=== PATIENT | female | born 1985 | race Caucasian/White ===

== ENCOUNTER → 2022-06-20 | Outpatient (CLI) | payer OTHER ==
--- NOTE | 2022-06-20 11:08 | US ---
EXAMINATION TYPE: US thyroid st tissue head/neck DATE OF EXAM: 06/20/2022 COMPARISON: NONE CLINICAL HISTORY: R79.89 ABN THYROID BLOOD TESTS,R76.8 THYROID ANTIBODY POSITI. Abnormal labs GLAND SIZE: Right Lobe: 3.8 x 1.5 x 1.3 cm Overall Parenchyma: heterogenous Left Lobe: 4.3 x 1.3 x 1.4 cm Overall Parenchyma: Heterogenous Isthmus Thickness: 0.5 cm NODULES RIGHT: # of nodules measured on right: 0 LEFT: # of nodules measured on left: 0 ISTHMUS: # of nodules measured in the isthmus: 0 Bilateral neck scanned, no evidence of lymphadenopathy. Bilateral thyroid heterogeneous without disc rete nodule. IMPRESSION: Heterogenous thyroid gland without suspicious nodule. Correlate with serum markers for thyroiditis.
--- NOTE | 2022-06-20 14:38 | CT ---
EXAMINATION TYPE: CT abdomen pelvis w con DATE OF EXAM: 06/20/2022 COMPARISON: None INDICATION: elevated LFT DLP: 1001.7 mGycm, Automated exposure control for dose reduction was used. CONTRAST: 70 mL of Isovue 300. Study performed with Oral Contrast TECHNIQUE: Axial images were obtained from above the diaphragm to the pubic rami in the axial plane a t 5 mm thick sections. Reconstructed images are reviewed on the computer in the coronal plane. FINDINGS: Limited CT sections are obtained the lung bases. The lung bases are clear. CT ABDOMEN: Liver: There is moderate diffuse fatty infiltration of the liver. No discrete masses or cysts are joselin dent. Spleen: Normal Pancreas: Normal Adrenal glands: The adrenal glands are normal. Gallbladder: Normal Kidneys: No masses are evident. No hydronephrosis is present. No cysts are present. Delayed images were obtained through the kidneys, which remain unremarkable. Aorta: Normal Inferior vena cava: Normal. CT PELVIS: Loops of bowel within the abdomen and pelvis are normal. There are loops of bowel which are incom pletely distended or lack oral contrast limiting their evaluation. Appendix: Normal as visualized. Urinary bladder: Normal. Genitourinary structures: Uterus appears normal. Adnexa are unremarkable. Osseous structures: No suspicious lytic or sclerotic lesions. IMPRESSIONS: 1. Moderate fatty infiltration of the liver. Hepatomegaly is present with a craniocaudal dimension o f 18.4 cm.
== END | disposition home or self-care (01) ==
LOC: RADCTMAIN 06:59
PROVIDERS: ATTEND Family Medicine
DX: E07.89 Other specified disorders of thyroid (principal); R79.89 Other specified abnormal findings of blood chemistry; R76.8 Other specified abnormal immunological findings in serum
CPT/HCPCS: 76536; 74177; Q9967

== ENCOUNTER → 2022-07-15 | Outpatient (CLI) | payer OTHER ==
[2022-07-15 10:13] LABS: Basophils % (A) 1 %; Eosinophils # (A) 0.1 k/uL (0-0.7); Eosinophils % (A) 2 %; HCT 46.5 % (34.0-46.0); HGB 15.5 gm/dL (11.4-16.0); Lymphocytes % (A) 30 %; MCH 31.6 pg (25.0-35.0); MCHC 33.4 g/dL (31.0-37.0); MCV 94.6 fL (80.0-100.0); Mean Platelet Volume 8.8; Monocytes # (A) 0.2 k/uL (0-1.0); Monocytes % (A) 3 %; Neutrophils # (A) 4.1 k/uL (1.3-7.7); Neutrophils % (A) 63 %; Platelet Count 285 k/uL (150-450); RBC 4.91 m/uL (3.80-5.40); WBC 6.5 k/uL (3.8-10.6)
[2022-07-15 15:38] LABS: ALT 320 U/L (8-44); AST 217 U/L (13-35); African American GFR (CKD) 126.8 (60.0-200.0); Albumin 4.7 g/dL (3.8-4.9); Albumin/Globulin Ratio 1.43 (1.60-3.17); Alkaline Phosphatase 101 U/L (41-126); Bilirubin, Conjugated <0.20 mg/dL (0.20-0.40); Blood Urea Nitrogen 12.8 mg/dL (9.0-27.0); Calcium 10.2 mg/dL (8.7-10.3); Carbon Dioxide 22.5 mmol/L (20.0-27.5); Chloride 103 mmol/L (96-109); Globulin 3.3 g/dL (1.6-3.3); Glucose 121 mg/dL (70-110); Non-African American GFR(CKD) 109.4 (60.0-200.0); Potassium 4.7 mmol/L (3.5-5.5); Sodium 139 mmol/L (135-145); Total Protein 7.9 g/dL (6.2-8.2)
[2022-07-16 01:59] LABS: ACTH 3.03 pg/mL (0.00-45.99)
[2022-07-16 10:16] LABS: Protein, Total 8.2 g/dL (6.2-8.2)
[2022-07-16 15:27] LABS: Albumin 4.52 g/dL (3.80-4.90); Gamma Globulin 1.3 g/dL (0.70-1.50)
== END | disposition home or self-care (01) ==
LOC: LABWHC1 08:41
PROVIDERS: ATTEND Ophthalmology
DX: I10 Essential (primary) hypertension (principal); E27.9 Disorder of adrenal gland, unspecified; H02.402 Unspecified ptosis of left eyelid; E05.90 Thyrotoxicosis, unspecified without thyrotoxic crisis or storm; R74.8 Abnormal levels of other serum enzymes; R77.8 Other specified abnormalities of plasma proteins
CPT/HCPCS: 36415; 80053; 82024; 82103; 82248; 82533; 83519; 84165; 84439; 84443; 84481; 85025

== ENCOUNTER → 2022-08-08 | Outpatient (CLI) | payer OTHER | END | disposition home or self-care (01) | LOC: LABWHC1 09:54 | PROVIDERS: ATTEND Family Medicine | DX: Z53.9 Procedure and treatment not carried out, unspecified reason (principal) ==

== ENCOUNTER → 2022-08-13 | Outpatient (CLI) | payer OTHER ==
--- NOTE | 2022-08-26 08:59 | MM ---
Reason for Exam: Follow-up at short interval from prior study. Last mammogram was performed 1 year(s) and 3 month(s) ago. Patient History: Menarche at age 13. Patient has no children. Last menstrual period: 08/07/2022 Risk Values: Daksha 5 year model risk: 0.4%. NCI Lifetime model risk: 11.2%. Prior Study Comparison: 05/17/2021 Bilateral Diagnostic Mammogram, [facility]. 09/17/2021 Bilateral Diagnostic Ultrasound, [facility]. Tissue Density: The breast tissue is heterogeneously dense. This may lower the sensitivity of mammography. Findings: Analyzed By CAD. Similar 3 focal asymmetries demonstrated within the upper inner right breast at middle to posterior depth when compared to prior mammogram. Similar asymmetry demonstrated within the upper left breast at posterior depth only on the cc view. No new specific masses or architectural distortion. No suspicious calcifications within either breast. Overall Assessment: Incomplete: need additional imaging evaluation, BI-RAD 0 Management: Diagnostic Breast Ultrasound of both breasts. A clinical breast exam by your physician is recommended on an annual basis and results should be correlated with mammographic findings. This exam should not preclude additional follow-up of suspicious palpable abnormalities. Results were given to the patient verbally at the time of exam. Electronically signed and approved by: Jamel Pizano D.O.
--- NOTE | 2022-08-26 09:05 | USB ---
Reason for Exam: Additional evaluation requested from prior study. Patient History: Menarche at age 13. Patient has no children. Risk Values: Daksha 5 year model risk: 0.4%. NCI Lifetime model risk: 11.2%. Technique: Method: Whole Breast Handheld. Prior Study Comparison: 05/17/2021 Bilateral Diagnostic Mammogram, [facility]. 09/17/2021 Bilateral Diagnostic Ultrasound, [facility]. Findings: The whole breast of both breasts, the axilla of both breasts and the retroareolar of both breasts were scanned. A complete US of all four quadrants of both breasts and retro-areolar region and axilla were reviewed. Multiple probably benign oval parallel avascular hypoechoic masses redemonstrated within both breasts likely represent fibroadenomas. Examples include a 1.9 x 0.7 x 1.2 cm mass within the right breast 1:00 6 cm from the nipple with internal vascular flow. There is posterior acoustic shadowing identified. Another one not previously visualized on prior examination at 7:00 10 cm from the nipple measures 0.6 x 0.5 x 0.9 cm without internal color flow. Stable 1.4 x 0.4 x 1.0 cm mass within the right breast at 10:00 12 cm from the nipple. Stable mass within the left breast at 2:00 6 cm from the nipple measuring 0.8 x 1.2 x 0.5 cm. There is another mass not definitively visualized within the left breast at 5:00 3 cm the nipple measuring 0.6 x 0.3 x 0.8 cm. Overall Assessment: Probably benign, BI-RAD 3 Management: Diagnostic Breast Ultrasound of both breasts in 6 months. A clinical breast exam by your physician is recommended on an annual basis and results should be correlated with mammographic findings. This exam should not preclude additional follow-up of suspicious palpable abnormalities. Results were given to the patient verbally at the time of exam. Electronically signed and approved by: Ezequiel Small M.D. Radiologist
== END | disposition home or self-care (01) ==
LOC: RADMAMWWP 07:54
PROVIDERS: ATTEND Family Medicine
DX: R92.8 Other abnormal and inconclusive findings on diagnostic imaging of breast (principal); N63.21 Unspecified lump in the left breast, upper outer quadrant
CPT/HCPCS: 77062; 77066

== ENCOUNTER → 2022-08-15 | Outpatient (CLI) | payer OTHER ==
[2022-08-15 17:50] LABS: ALT 253 U/L (8-44); AST 172 U/L (13-35); Albumin 4.4 g/dL (3.8-4.9); Albumin/Globulin Ratio 1.42 (1.60-3.17); Alkaline Phosphatase 89 U/L (41-126); Bilirubin, Conjugated <0.20 mg/dL (0.20-0.40); Globulin 3.1 g/dL (1.6-3.3); Total Protein 7.5 g/dL (6.2-8.2)
== END | disposition home or self-care (01) ==
LOC: LABWHC1 08:51
PROVIDERS: ATTEND Nurse Practitioner Family
DX: R74.8 Abnormal levels of other serum enzymes (principal)
CPT/HCPCS: 36415; 80074; 80076

== ENCOUNTER → 2022-08-22 | Outpatient (CLI) | payer OTHER ==
[2022-08-22 16:00] LABS: HCT 42.2 % (37.2-46.3); HGB 14.2 g/dL (12.0-15.0); MCH 30.5 pg (27.0-32.0); MCHC 33.6 g/dL (32.0-37.0); MCV 90.6 fL (80.0-97.0); Mean Platelet Volume 10.9 fL (9.5-12.2); NRBC Per 100 WBC 0 /100 WBCS (0.0-0.0); Platelet Count 312 X 10*3/uL (140-440); RBC 4.66 X 10*6/uL (4.10-5.20); RDW 12.3 % (11.5-14.5); WBC 6.46 X 10*3/uL (4.50-10.00)
[2022-08-22 16:36] LABS: ALT 285 U/L (8-44); AST 258 U/L (13-35); African American GFR (CKD) 135.3 (60.0-200.0); Albumin 4.3 g/dL (3.8-4.9); Albumin/Globulin Ratio 1.42 (1.60-3.17); Alkaline Phosphatase 84 U/L (41-126); BUN/Creat Ratio 23.03 Ratio (12.00-20.00); Bilirubin, Conjugated <0.20 mg/dL (0.20-0.40); Blood Urea Nitrogen 13.7 mg/dL (9.0-27.0); Calcium 9.6 mg/dL (8.7-10.3); Chloride 101 mmol/L (96-109); Glucose 101 mg/dL (70-110); Non-African American GFR(CKD) 116.8 (60.0-200.0); Potassium 4.1 mmol/L (3.5-5.5); Sodium 137 mmol/L (135-145); Total Protein 7.3 g/dL (6.2-8.2)
== END | disposition home or self-care (01) ==
LOC: LABWHC1 09:25
PROVIDERS: ATTEND Internal Medicine
DX: E05.90 Thyrotoxicosis, unspecified without thyrotoxic crisis or storm (principal); R74.8 Abnormal levels of other serum enzymes
CPT/HCPCS: 36415; 80053; 82248; 84439; 84443; 84481; 85027

== ENCOUNTER → 2022-09-13 | Outpatient (CLI) | payer OTHER ==
[2022-09-13 15:41] LABS: ALT 180 U/L (8-44); AST 141 U/L (13-35); Albumin 4.4 d/dL (3.8-4.9); Albumin/Globulin Ratio 1.33 Ratio (1.60-3.17); Alkaline Phosphatase 94 U/L (41-126); Blood Urea Nitrogen 11.2 mg/dL (9.0-27.0); Calcium 9.9 mg/dL (8.7-10.3); Carbon Dioxide 23.6 mmol/L (21.6-31.8); Chloride 102 mmol/L (96-109); Globulin 3.3 d/dL (1.6-3.3); Glucose 106 mg/dL (70-110); Potassium 4.5 mmol/L (3.5-5.5); Sodium 139 mmol/L (135-145); Total Bilirubin 0.3 mg/dL (0.3-1.2); Total Protein 7.7 d/dL (6.2-8.2)
== END | disposition home or self-care (01) ==
LOC: LABWHC1 08:49
PROVIDERS: ATTEND Nurse Practitioner Family
DX: R74.8 Abnormal levels of other serum enzymes (principal)
CPT/HCPCS: 36415; 80053

== ENCOUNTER → 2022-09-25 | Outpatient (CLI) | payer OTHER ==
[2022-09-25 16:06] LABS: ALT 148 U/L (8-44); AST 130 U/L (13-35); Albumin 4.1 d/dL (3.8-4.9); Albumin/Globulin Ratio 1.37 Ratio (1.60-3.17); Alkaline Phosphatase 88 U/L (41-126); Bilirubin, Conjugated <0.20 mg/dL (0.20-0.40); Bilirubin,Unconjugated >0 mg/dL (0.20-1.00); Total Bilirubin 0.2 mg/dL (0.3-1.2); Total Protein 7.1 d/dL (6.2-8.2)
== END | disposition home or self-care (01) ==
LOC: LABWHC1 09:14
PROVIDERS: ATTEND Nurse Practitioner Family
DX: R74.8 Abnormal levels of other serum enzymes (principal)
CPT/HCPCS: 36415; 80076

== ENCOUNTER → 2022-09-27 | Outpatient (CLI) | payer OTHER ==
[2022-09-27 16:38] LABS: ALT 204 U/L (8-44); AST 224 U/L (13-35); Albumin 4.5 d/dL (3.8-4.9); Albumin/Globulin Ratio 1.32 Ratio (1.60-3.17); Alkaline Phosphatase 88 U/L (41-126); BUN/Creat Ratio 16.86 Ratio (12.00-20.00); Blood Urea Nitrogen 11.8 mg/dL (9.0-27.0); Calcium 10.1 mg/dL (8.7-10.3); Carbon Dioxide 23.4 mmol/L (21.6-31.8); Chloride 103 mmol/L (96-109); Globulin 3.4 d/dL (1.6-3.3); Glucose 100 mg/dL (70-110); Potassium 3.6 mmol/L (3.5-5.5); Sodium 140 mmol/L (135-145); Total Bilirubin 0.6 mg/dL (0.3-1.2); Total Protein 7.9 d/dL (6.2-8.2)
== END | disposition home or self-care (01) ==
LOC: LABWHC1 10:05
PROVIDERS: ATTEND Nurse Practitioner Family
DX: R74.8 Abnormal levels of other serum enzymes (principal)
CPT/HCPCS: 36415; 80053; 86376

== ENCOUNTER → 2022-10-09 | Outpatient (CLI) | payer OTHER ==
[2022-10-09 14:32] LABS: HCT 45.8 % (37.2-46.3); MCHC 32.8 d/dL (32.0-37.0); MCV 91.6 FL (80.0-97.0); Mean Platelet Volume 11.5 FL (9.5-12.2); NRBC Per 100 WBC 0 X 10*3/uL (0.00-0.01); Platelet Count 269 X 10*3/uL (140-440); RDW 12.3 % (11.5-14.5); WBC 6.85 X 10*3/uL (4.50-10.00)
[2022-10-09 14:57] LABS: ALT 168 U/L (8-44); AST 113 U/L (13-35); Albumin 4.4 d/dL (3.8-4.9); Albumin/Globulin Ratio 1.38 Ratio (1.60-3.17); Alkaline Phosphatase 96 U/L (41-126); BUN/Creat Ratio 18.86 Ratio (12.00-20.00); Blood Urea Nitrogen 13.2 mg/dL (9.0-27.0); Calcium 9.7 mg/dL (8.7-10.3); Carbon Dioxide 20.4 mmol/L (21.6-31.8); Chloride 103 mmol/L (96-109); Globulin 3.2 d/dL (1.6-3.3); Glucose 107 mg/dL (70-110); Potassium 4.4 mmol/L (3.5-5.5); Sodium 137 mmol/L (135-145); T4, Free (Free Thyroxine) 1.06 ng/dL (0.80-1.80); Total Bilirubin 0.4 mg/dL (0.3-1.2); Total Protein 7.6 d/dL (6.2-8.2)
== END | disposition home or self-care (01) ==
LOC: LABWHC1 09:04
PROVIDERS: ATTEND Internal Medicine
DX: E05.90 Thyrotoxicosis, unspecified without thyrotoxic crisis or storm (principal)
CPT/HCPCS: 36415; 80053; 84439; 84443; 84481; 85027

== ENCOUNTER 2022-11-13 07:39 | Day surgery (SDC) | payer OTHER ==
[2022-11-13] MEDS ORDERED: ALPRAZolam 0.5 MG TAB PO PRN (08:27)
[2022-11-13 08:42] LABS: Mean Platelet Volume 8.1; Platelet Count 267 k/uL (150-450)
[2022-11-13 09:01] LABS: INR 0.9 (<1.2); Prothrombin Time 9.5 sec (9.0-12.0)
[2022-11-13] MEDS ORDERED: HYDROmorphone 0.5 MG/0.5 ML SYRINGE IVP PRN (09:28)
--- NOTE | 2022-11-13 11:37 | CT ---
EXAMINATION TYPE: CT biopsy liver DATE OF EXAM: 11/13/2022 COMPARISON: NONE HISTORY: Abnormal liver function studies CT DLP: 998mGycm The procedure was explained to the patient. The risks, complications, benefits, and alternatives wer e discussed and any questions were answered. Informed consent was obtained. Patient was placed supi ne on the CT table and prepped and draped in the usual sterile fashion. All elements of maximal barrier and sterile technique utilized. Utilizing CT guidance, an 18 gauge core biopsy needle access into the posterior segment right lobe o f the liver was achieved and a single 18 gauge core sample was obtained. The patient was stable thro ughout the procedure and remained stable upon discharge. IMPRESSION: 1. Successful 18 gauge core biopsy of the liver.
[2022-11-13 13:03] VITALS: BP 146/85; PULSE 73; RESP 18; TEMP 98.3
== END 2022-11-13 14:44 | disposition home or self-care (01) ==
LOC: RADPROMAIN 07:39 → 1SOBS 09:36 → RADPROMAIN 14:44
PROVIDERS: ATTEND Internal Medicine Gastroenterology
DX: K75.81 Nonalcoholic steatohepatitis (NASH) (principal)
CPT/HCPCS: 85049; 85610; 88313; 88307; 47000; 77012; J1170

== ENCOUNTER → 2022-11-28 | Outpatient (CLI) | payer OTHER ==
[2022-11-28 16:23] LABS: Basophils # (A) 0.06 X 10*3/uL (0.00-0.10); Basophils % (A) 0.9 %; Eosinophils # (A) 0.27 X 10*3/uL (0.04-0.35); Eosinophils % (A) 3.9 %; HCT 44.2 % (37.2-46.3); HGB 15.1 d/dL (12.0-15.0); Lymphocytes # (A) 2.49 X 10*3/uL (0.90-5.00); Lymphocytes % (A) 35.8 %; MCH 30.7 pg (27.0-32.0); MCHC 34.2 d/dL (32.0-37.0); MCV 89.8 FL (80.0-97.0); Mean Platelet Volume 10.6 FL (9.5-12.2); Monocytes # (A) 0.43 X 10*3/uL (0.20-1.00); Monocytes % (A) 6.2 %; NRBC Per 100 WBC 0 X 10*3/uL (0.00-0.01); Neutrophils # (A) 3.69 X 10*3/uL (1.80-7.70); Neutrophils % (A) 52.9 %; Platelet Count 318 X 10*3/uL (140-440); RBC 4.92 X 10*6/uL (4.10-5.20); RDW 12.4 % (11.5-14.5); WBC 6.96 X 10*3/uL (4.50-10.00)
[2022-11-28 16:26] LABS: ALT 289 U/L (8-44); AST 256 U/L (13-35); Albumin 4.6 d/dL (3.8-4.9); Albumin/Globulin Ratio 1.59 Ratio (1.60-3.17); Alkaline Phosphatase 86 U/L (41-126); Blood Urea Nitrogen 10.8 mg/dL (9.0-27.0); Calcium 9.6 mg/dL (8.7-10.3); Carbon Dioxide 22.8 mmol/L (21.6-31.8); Chloride 101 mmol/L (96-109); Globulin 2.9 d/dL (1.6-3.3); Glucose 104 mg/dL (70-110); Potassium 4.5 mmol/L (3.5-5.5); Sodium 137 mmol/L (135-145); Total Bilirubin 0.4 mg/dL (0.3-1.2); Total Protein 7.5 d/dL (6.2-8.2)
== END | disposition home or self-care (01) ==
LOC: LABWHC1 08:28
PROVIDERS: ATTEND Internal Medicine Gastroenterology
DX: R74.8 Abnormal levels of other serum enzymes (principal)
CPT/HCPCS: 36415; 80053; 85025

== ENCOUNTER → 2022-12-27 | Outpatient (CLI) | payer OTHER ==
[2022-12-27 15:54] LABS: Basophils # (A) 0.05 X 10*3/uL (0.00-0.10); Basophils % (A) 0.8 %; Eosinophils # (A) 0.29 X 10*3/uL (0.04-0.35); Eosinophils % (A) 4.6 %; HCT 43.9 % (37.2-46.3); HGB 14.6 d/dL (12.0-15.0); Lymphocytes # (A) 2.47 X 10*3/uL (0.90-5.00); Lymphocytes % (A) 39.3 %; MCH 30.7 pg (27.0-32.0); MCHC 33.3 d/dL (32.0-37.0); MCV 92.2 FL (80.0-97.0); Mean Platelet Volume 10.7 FL (9.5-12.2); Monocytes # (A) 0.42 X 10*3/uL (0.20-1.00); Monocytes % (A) 6.7 %; NRBC Per 100 WBC 0 X 10*3/uL (0.00-0.01); Neutrophils # (A) 3.04 X 10*3/uL (1.80-7.70); Neutrophils % (A) 48.3 %; Platelet Count 294 X 10*3/uL (140-440); RBC 4.76 X 10*6/uL (4.10-5.20); RDW 12.5 % (11.5-14.5); WBC 6.29 X 10*3/uL (4.50-10.00)
[2022-12-27 17:01] LABS: ALT 278 U/L (8-44); AST 213 U/L (13-35); Albumin 4.4 d/dL (3.8-4.9); Albumin/Globulin Ratio 1.42 Ratio (1.60-3.17); Alkaline Phosphatase 89 U/L (41-126); BUN/Creat Ratio 16.14 Ratio (12.00-20.00); Blood Urea Nitrogen 11.3 mg/dL (9.0-27.0); Calcium 9.4 mg/dL (8.7-10.3); Carbon Dioxide 23.2 mmol/L (21.6-31.8); Chloride 101 mmol/L (96-109); Globulin 3.1 d/dL (1.6-3.3); Glucose 112 mg/dL (70-110); Potassium 4.2 mmol/L (3.5-5.5); Sodium 139 mmol/L (135-145); T4, Free (Free Thyroxine) 0.92 ng/dL (0.80-1.80); Total Bilirubin 0.4 mg/dL (0.3-1.2); Total Protein 7.5 d/dL (6.2-8.2)
== END | disposition home or self-care (01) ==
LOC: LABWHC1 08:46
PROVIDERS: ATTEND Internal Medicine
DX: E05.90 Thyrotoxicosis, unspecified without thyrotoxic crisis or storm (principal); R74.8 Abnormal levels of other serum enzymes
CPT/HCPCS: 36415; 80053; 84439; 84443; 84481; 85025

== ENCOUNTER → 2023-01-02 | Outpatient (CLI) | payer OTHER ==
--- NOTE | 2023-01-02 15:36 | P.GSHP ---
History of Present Illness H&P Date: 01/02/23 Chief Complaint: bilateral breast masses on ultrasound Vandana is a 37 year old white female seen in consultation for Dr. Barriga regarding bilateral breast masses on ultrasound. She had a bilateral mammogram and ultrasound on 08-13-22 showing these lesions. The patients paternal grandmother (in her 50's) had breast cancer and has had mammograms done early. The patient was being followed very closely in [place] and we do not have those mammographic films. The patient does not feel any new lumps masses or nodules of concern in either breast. She is not complaining of any nipple discharge or skin changes. She has not had any recent trauma or infection of the breast. Caffeine: 1 pop/week, tea daily nicotine: none chocolate: twice weekly BCP: on them since Family History: paternal grandmother: breast cancer in her 50's, ? bone and blood cancer in her 90's father: prostate cancer paternal grandfather: prostate cancer mother: cervical cancer Hormonal history: Menarche:13 G0 periods regular, on BCP: family history of ovarian cyst LMP: last week Surgical history: Left wrist ganglion cyst twice Medical History: thyroid disorder GRAVES disease fatty liver/ nonalcoholic HTN Social History: Nicotine: Negative Alcohol: One drink a month Drugs:none - Constitutional Constitutional: Denies chills, Denies fever - EENT Eyes: denies blurred vision, denies pain Ears: deny: decreased hearing, tinnitus Ears, nose, mouth and throat: Denies headache, Denies sore throat - Breasts Breasts: bilateral: as per HPI - Cardiovascular Cardiovascular: Denies chest pain, Denies shortness of breath - Respiratory Respiratory: Denies cough, Denies 7 - Gastrointestinal Gastrointestinal: Denies abdominal pain, Denies diarrhea, Denies nausea, Denies vomiting - Genitourinary (Female) Genitourinary: Denies dysuria, Denies hematuria - Menstruation Menstruation: Reports as per HPI - Musculoskeletal Musculoskeletal: Denies myalgias - Integumentary Integumentary: Denies pruritus, Denies rash - Neurological Neurological: Denies numbness, Denies weakness - Psychiatric Psychiatric: Denies anxiety, Denies depression - Endocrine Comment: thyoid disease Endocrine: Reports weight change, Denies fatigue - Hematologic/Lymphatic Comment: none - Allergic/Immunologic Allergic/Immunologic: Reports as per HPI Past Medical History Past Medical History: Hypertension, Liver Disease, Thyroid Disorder History of Any Multi-Drug Resistant Organisms: None Reported Additional Past Surgical History / Comment(s): ganglion cyst left wrist removed Past Anesthesia/Blood Transfusion Reactions: No Reported Reaction Past Psychological History: Anxiety Smoking Status: Never smoker Past Alcohol Use History: None Reported Additional Drug Use History / Comment(s): CBD edible - Past Family History Father Family Medical History: Liver Disease Additional Family Medical History / Comment(s): fatty liver disease Medications and Allergies Home Medications Medication Instructions Recorded Confirmed Type Fexofenadine HCl [Yolie Allergy] 180 mg PO DAILY 11/06/22 01/02/23 History Fish Oil/Dha/Epa [Fish Oil 1,200 1 each PO DAILY 11/06/22 01/02/23 History mg Fish Oil] L.acidoph,Paracasei, B.lactis 1 each PO DAILY 11/06/22 01/02/23 History [Probiotic] Milk Thistle 400 mg PO DAILY 11/06/22 01/02/23 History Multivit with Calcium,Iron,Min 1 each PO DAILY 11/06/22 01/02/23 History [Women's Multivitamin] amLODIPine 10 mg PO DAILY 11/06/22 01/02/23 History methazolAMIDE [Methazolamide] 50 mg PO DAILY 11/06/22 01/02/23 History Kariva 1 tab PO DAILY 01/02/23 01/02/23 History Multivitamin [Multivitamins Adult 1 each PO DAILY 01/02/23 01/02/23 History Gummies] Allergies Allergy/AdvReac Type Severity Reaction Status Date / Time Penicillins Allergy Rash/Hives Verified 01/02/23 15:14 Surgical - Exam - General no distress - Eyes normal ocular movement - ENT no hearing loss - Neck trachea midline - Respiratory normal respiratory effort, clear to auscultation - Cardiovascular Rhythm: regular Heart Sounds: normal: S1, S2 - Abdomen Abdomen: soft, non tender, no guarding, no rigid, no rebound - Integumentary normal turgor - Neurologic no disoriented, no combative - Musculoskeletal normal gait - Psychiatric oriented to time, oriented to person, oriented to place, speech is normal, memory intact Breast Exam: BRA: 34H Inspection: Bilateral grade 3 ptosis Palpation: Right breast: Multi-positional exam fibrocystic changes, no discrete dominant masses or nodules of concern Right axilla: No adenopathy of concern Left breast: Multiple positional exam fibrocystic changes no dominant masses or nodules of concern Left axilla: No adenopathy of concern Results reviewed ultrasound and mammogram results Assessment and Plan Assessment: Impression: Bilateral nodules in the breast, Positive family history of breast cancer Fibrocystic breast changes Macromastia Plan: Patient is due for bilateral breast ultrasound Follow up after bilateral breast ultrasound Appointment with plastic surgery to consider breast reduction CC: Dr. Barriga
== END ==
LOC: WWCWWP 13:56
PROVIDERS: ATTEND Surgery
DX: Z12.31 Encounter for screening mammogram for malignant neoplasm of breast (principal); N60.19 Diffuse cystic mastopathy of unspecified breast; E07.9 Disorder of thyroid, unspecified; I10 Essential (primary) hypertension; K76.0 Fatty (change of) liver, not elsewhere classified; N60.09 Solitary cyst of unspecified breast; N62 Hypertrophy of breast; Z80.3 Family history of malignant neoplasm of breast; Z88.0 Allergy status to penicillin

== ENCOUNTER → 2023-01-10 | Outpatient (CLI) | payer OTHER ==
--- NOTE | 2023-01-10 13:39 | USB ---
Reason for Exam: Follow-up at short interval from prior study. Patient History: Menarche at age 13. Patient has no children. Risk Values: Daksha 5 year model risk: 0.4%. NCI Lifetime model risk: 11.2%. Technique: Method: Targeted. Prior Study Comparison: 05/17/2021 Bilateral Diagnostic Mammogram, [facility]. 08/13/2022 Bilateral MG 3D diag mammo w/cad [facility], [facility]. Findings: The lateral section of the breast of both breasts, the axilla of both breasts and the retroareolar of both breasts were scanned. Cystic structure at the right 10:00 position is redemonstrated and measures 1.2 x 0.6 cm versus 1 cm previously. At the right 2:00 position there is a 1.1 cm hypoechoic lesion unchanged from prior study 1.2 cm. At the left 2:00 position. Stable hypoechoic lesion 6 cm from the nipple measures 1.1 cm. Likely reflecting fibroadenoma. Overall Assessment: Probably benign, BI-RAD 3 Management: Diagnostic Breast Ultrasound of both breasts in 6 months. A clinical breast exam by your physician is recommended on an annual basis and results should be correlated with mammographic findings. This exam should not preclude additional follow-up of suspicious palpable abnormalities. Results were given to the patient verbally at the time of exam. Electronically signed and approved by: Mode Lyons M.D. Radiologis
== END | disposition home or self-care (01) ==
LOC: RADUSWWP 10:08
PROVIDERS: ATTEND Surgery
DX: N60.01 Solitary cyst of right breast (principal); R92.8 Other abnormal and inconclusive findings on diagnostic imaging of breast

== ENCOUNTER → 2023-01-30 | Outpatient (CLI) | payer OTHER ==
[2023-01-30 10:15] VITALS: BP 154/99; PULSE 86; RESP 18; TEMP 98.5
--- NOTE | 2023-01-30 10:19 | P.PN ---
Subjective Progress Note Date: 01/30/23 bilateral breast masses on ultrasound Vandana is a 37 year old white female seen in consultation for Dr. Barriga regarding bilateral breast masses on ultrasound. She had a bilateral mammogram and ultrasound on 08-13-22 showing these lesions. The patients paternal grandmother (in her 50's) had breast cancer and has had mammograms done early. The patient was being followed very closely in [place] and we do not have those mammographic films. The patient does not feel any new lumps masses or nodules of concern in either breast. She is not complaining of any nipple discharge or skin changes. She has not had any recent trauma or infection of the breast. A bilateral breast ultrasound was done on 01-10-23. This showed: right breast cyst at 10:00 right breast 2:00 1.1 cm unchanged lesion left breast 2:00 stabel hypoechoic lesion BIRAD 3 repeat ultrasound in 6 months Caffeine: 1 pop/week, tea daily nicotine: none chocolate: twice weekly BCP: on them since 16 Family History: paternal grandmother: breast cancer in her 50's, ? bone and blood cancer in her 90's father: prostate cancer paternal grandfather: prostate cancer mother: cervical cancer Hormonal history: Menarche:13 G0 periods regular, on BCP: family history of ovarian cyst LMP: last week Surgical history: Left wrist ganglion cyst twice Medical History: thyroid disorder GRAVES disease fatty liver/ nonalcoholic HTN Social History: Nicotine: Negative Alcohol: One drink a month Drugs:none - Constitutional Constitutional: Denies chills, Denies fever - EENT Eyes: denies blurred vision, denies pain Ears: deny: decreased hearing, tinnitus Ears, nose, mouth and throat: Denies headache, Denies sore throat - Breasts Breasts: bilateral: as per HPI - Cardiovascular Cardiovascular: Denies chest pain, Denies shortness of breath - Respiratory Respiratory: Denies cough - Gastrointestinal Gastrointestinal: Denies abdominal pain, Denies diarrhea, Denies nausea, Denies vomiting - Genitourinary (Female) Genitourinary: Denies dysuria, Denies hematuria - Menstruation Menstruation: Reports as per HPI - Musculoskeletal Musculoskeletal: Denies myalgias - Integumentary Integumentary: Denies pruritus, Denies rash - Neurological Neurological: Denies numbness, Denies weakness - Psychiatric Psychiatric: Denies anxiety, Denies depression - Endocrine Comment: thyoid disease Endocrine: Reports weight change, Denies fatigue - Hematologic/Lymphatic Comment: none - Allergic/Immunologic Allergic/Immunologic: Reports as per HPI Past Medical History Past Medical History: Hypertension, Liver Disease, Thyroid Disorder History of Any Multi-Drug Resistant Organisms: None Reported Additional Past Surgical History / Comment(s): ganglion cyst left wrist removed Past Anesthesia/Blood Transfusion Reactions: No Reported Reaction Past Psychological History: Anxiety Smoking Status: Never smoker Past Alcohol Use History: None Reported Additional Drug Use History / Comment(s): CBD edible - Past Family History Father Family Medical History: Liver Disease Additional Family Medical History / Comment(s): fatty liver disease Medications and Allergies Home Medications Medication Instructions Recorded Confirmed Type Fexofenadine HCl [Yolie Allergy] 180 mg PO DAILY 11/06/22 01/02/23 History Fish Oil/Dha/Epa [Fish Oil 1,200 1 each PO DAILY 11/06/22 01/02/23 History mg Fish Oil] L.acidoph,Paracasei, B.lactis 1 each PO DAILY 11/06/22 01/02/23 History [Probiotic] Milk Thistle 400 mg PO DAILY 11/06/22 01/02/23 History Multivit with Calcium,Iron,Min 1 each PO DAILY 11/06/22 01/02/23 History [Women's Multivitamin] amLODIPine 10 mg PO DAILY 11/06/22 01/02/23 History methazolAMIDE [Methazolamide] 50 mg PO DAILY 11/06/22 01/02/23 History Kariva 1 tab PO DAILY 01/02/23 01/02/23 History Multivitamin [Multivitamins Adult 1 each PO DAILY 01/02/23 01/02/23 History Gummies] Allergies Allergy/AdvReac Type Severity Reaction Status Date / Time Penicillins Allergy Rash/Hives Verified 01/02/23 15:14 Objective - Vital Signs Vital signs: Vital Signs Temp 98.5 F 01/30/23 10:06 Pulse 86 01/30/23 10:06 Resp 18 01/30/23 10:06 BP 154/99 01/30/23 10:06 Pulse Ox 99 01/30/23 10:06 FiO2 Assessment and Plan Assessment: Impression: Bilateral nodules in the breast, Positive family history of breast cancer Fibrocystic breast changes Macromastia The patient had a bilateral mammogram performed on [id number] BIRAD 3 Plan: Patient is due for bilateral breast ultrasound in 6 months Follow up after bilateral breast ultrasound Appointment with plastic surgery to consider breast reduction If the patient is going to have a breast reduction prior to the repeat ultrasound I would recommend an ultrasound core biopsy of the hypoechoic lesion in the right breast, at this time the patient would prefer to avoid a biopsy if possible. CC: Dr. Barriga
== END ==
LOC: WWCWWP 09:35
PROVIDERS: ATTEND Surgery
DX: N62 Hypertrophy of breast (principal); N60.02 Solitary cyst of left breast; N60.01 Solitary cyst of right breast; N60.11 Diffuse cystic mastopathy of right breast; N63.10 Unspecified lump in the right breast, unspecified quadrant; N63.20 Unspecified lump in the left breast, unspecified quadrant; N60.12 Diffuse cystic mastopathy of left breast; E07.9 Disorder of thyroid, unspecified; I10 Essential (primary) hypertension; K76.0 Fatty (change of) liver, not elsewhere classified; Z80.3 Family history of malignant neoplasm of breast; Z88.0 Allergy status to penicillin

== ENCOUNTER → 2023-02-06 | Outpatient (CLI) | payer OTHER ==
[2023-02-06 16:13] LABS: Basophils # (A) 0.03 X 10*3/uL (0.00-0.10); Basophils % (A) 0.5 %; Eosinophils # (A) 0.05 X 10*3/uL (0.04-0.35); Eosinophils % (A) 0.8 %; HCT 44.3 % (37.2-46.3); HGB 14.8 g/dL (12.0-15.0); Lymphocytes # (A) 2.23 X 10*3/uL (0.90-5.00); Lymphocytes % (A) 36.2 %; MCH 30.4 pg (27.0-32.0); MCHC 33.4 g/dL (32.0-37.0); Mean Platelet Volume 10.6 FL (9.5-12.2); Monocytes % (A) 8.1 %; NRBC Per 100 WBC 0 X 10*3/uL (0.00-0.01); Neutrophils # (A) 3.33 X 10*3/uL (1.80-7.70); Neutrophils % (A) 54.1 %; Platelet Count 329 X 10*3/uL (140-440); RBC 4.87 X 10*6/uL (4.10-5.20); RDW 12.4 % (11.5-14.5); WBC 6.16 X 10*3/uL (4.50-10.00)
[2023-02-06 16:17] LABS: BUN/Creat Ratio 18.43 Ratio (12.00-20.00); Blood Urea Nitrogen 12.9 mg/dL (9.0-27.0); Glucose 99 mg/dL (70-110)
[2023-02-06 16:18] LABS: ALT 267 U/L (8-44); AST 241 U/L (13-35); Albumin 4.6 g/dL (3.8-4.9); Albumin/Globulin Ratio 1.53 Ratio (1.60-3.17); Alkaline Phosphatase 84 U/L (41-126); Calcium 10.1 mg/dL (8.7-10.3); Carbon Dioxide 23.9 mmol/L (21.6-31.8); Chloride 101 mmol/L (96-109); Potassium 4.4 mmol/L (3.5-5.5); Sodium 137 mmol/L (135-145); Total Bilirubin 0.6 mg/dL (0.3-1.2); Total Protein 7.6 g/dL (6.2-8.2)
== END | disposition home or self-care (01) ==
LOC: LABWHC1 09:19
PROVIDERS: ATTEND Internal Medicine Gastroenterology
DX: R74.8 Abnormal levels of other serum enzymes (principal)
CPT/HCPCS: 36415; 80053; 85025

== ENCOUNTER → 2023-04-02 | Outpatient (CLI) | payer OTHER ==
[2023-04-02 15:34] LABS: ALT 160 U/L (8-44); AST 131 U/L (13-35); Albumin 4.3 g/dL (3.8-4.9); Albumin/Globulin Ratio 1.43 Ratio (1.60-3.17); Alkaline Phosphatase 85 U/L (41-126); Blood Urea Nitrogen 13.6 mg/dL (9.0-27.0); Calcium 9.7 mg/dL (8.7-10.3); Chloride 102 mmol/L (96-109); Glucose 103 mg/dL (70-110); Potassium 4.3 mmol/L (3.5-5.5); Sodium 137 mmol/L (135-145); T4, Free (Free Thyroxine) 0.92 ng/dL (0.80-1.80); Total Bilirubin 0.5 mg/dL (0.3-1.2); Total Protein 7.3 g/dL (6.2-8.2)
[2023-04-02 15:54] LABS: Basophils # (A) 0.06 X 10*3/uL (0.00-0.10); Basophils % (A) 0.8 %; Eosinophils # (A) 0.03 X 10*3/uL (0.04-0.35); Eosinophils % (A) 0.4 %; HCT 43.6 % (37.2-46.3); HGB 15.2 g/dL (12.0-15.0); Lymphocytes # (A) 3.56 X 10*3/uL (0.90-5.00); MCH 31.7 pg (27.0-32.0); MCHC 34.9 g/dL (32.0-37.0); Mean Platelet Volume 10.9 FL (9.5-12.2); Monocytes # (A) 0.53 X 10*3/uL (0.20-1.00); NRBC Per 100 WBC 0 X 10*3/uL (0.00-0.01); Neutrophils # (A) 3.38 X 10*3/uL (1.80-7.70); Neutrophils % (A) 44.5 %; Platelet Count 309 X 10*3/uL (140-440); RBC 4.79 X 10*6/uL (4.10-5.20); RDW 12.7 % (11.5-14.5); WBC 7.58 X 10*3/uL (4.50-10.00)
== END | disposition home or self-care (01) ==
LOC: LABWHC1 09:07
PROVIDERS: ATTEND Internal Medicine Gastroenterology
DX: E05.90 Thyrotoxicosis, unspecified without thyrotoxic crisis or storm (principal); R74.8 Abnormal levels of other serum enzymes; R73.9 Hyperglycemia, unspecified
CPT/HCPCS: 36415; 80053; 83036; 84439; 84443; 84481; 85025

== ENCOUNTER → 2023-07-14 | Outpatient (CLI) | payer OTHER ==
--- NOTE | 2023-07-14 09:46 | USB ---
Reason for Exam: Follow-up at short interval from prior study. Patient History: Menarche at age 13. Patient has no children. Risk Values: Daksha 5 year model risk: 0.5%. NCI Lifetime model risk: 11.2%. Technique: Method: Targeted. Prior Study Comparison: 05/17/2021 Bilateral Diagnostic Mammogram, [facility]. 08/13/2022 Bilateral MG 3D diag mammo w/cad [facility], [facility]. Findings: The upper section of the breast of the right breast, the lateral section of the breast of both breasts, the axilla of both breasts and the retroareolar of both breasts were scanned. Bilateral smoothly marginated masses appear slightly smaller than on prior study of 08/13/2022 and stable dating back to 01/10/2023. Continued follow-up is recommended.. Overall Assessment: Probably benign, BI-RAD 3 Management: Diagnostic Breast Ultrasound of both breasts in 6 months. A clinical breast exam by your physician is recommended on an annual basis and results should be correlated with mammographic findings. This exam should not preclude additional follow-up of suspicious palpable abnormalities. Results were given to the patient verbally at the time of exam. Electronically signed and approved by: Mode Lyons M.D. Radiologis
== END | disposition home or self-care (01) ==
LOC: RADUSWWP 08:50
PROVIDERS: ATTEND Surgery
DX: N63.10 Unspecified lump in the right breast, unspecified quadrant (principal); N63.20 Unspecified lump in the left breast, unspecified quadrant; R92.8 Other abnormal and inconclusive findings on diagnostic imaging of breast

== ENCOUNTER → 2023-07-18 | Outpatient (CLI) | payer OTHER ==
--- NOTE | 2023-07-18 10:50 | P.PN ---
Subjective Progress Note Date: 07/18/23 Principal diagnosis: bilateral breast masses on ultrasound 07-18-23 bilateral breast masses on ultrasound Vandana is a 38 year old white female seen in consultation for Dr. Barriga regarding bilateral breast masses on ultrasound. She had a bilateral mammogram and ultrasound on 08-13-22 showing these lesions. The patients paternal grandmother (in her 50's) had breast cancer and has had mammograms done early. The patient was being followed very closely in [place] and we do not have those mammographic films. The patient does not feel any new lumps masses or nodules of concern in either breast. She is not complaining of any nipple discharge or skin changes. She has not had any recent trauma or infection of the breast. A bilateral breast ultrasound was done on 01-10-23. This showed: right breast cyst at 10:00 right breast 2:00 1.1 cm unchanged lesion left breast 2:00 stabel hypoechoic lesion repeat bilateral ultrasound on 07-14-23 BIRAD 3 repeat in 6 months, the lesions are slightly smaller than on study of 08-13-22 and stable with 01-10-23 exam, this was personally reviewed with Dr. Jewell right breast lesion at 10,12, and 1 recommend core biopsy of 1 oclock lesion, at least left breast lesion at 2, recommend core biopsy She is not complaining of any new lumps masses or nodules of concern in either breast; she is considering having a reduction mammoplasty and would like to have the lesion sampled to assure that there is nothing of concern Caffeine: 1 pop/week, tea daily nicotine: none chocolate: twice weekly BCP: on them since 16 Family History: paternal grandmother: breast cancer in her 50's, ? bone and blood cancer in her 90's father: prostate cancer paternal grandfather: prostate cancer mother: cervical cancer Hormonal history: Menarche:13 G0 periods regular, on BCP: family history of ovarian cyst LMP: last week Surgical history: Left wrist ganglion cyst twice Medical History: thyroid disorder GRAVES disease fatty liver/ nonalcoholic HTN Social History: Nicotine: Negative Alcohol: One drink a month Drugs:none - Constitutional Constitutional: Denies chills, Denies fever - EENT Eyes: denies blurred vision, denies pain Ears: deny: decreased hearing, tinnitus Ears, nose, mouth and throat: Denies headache, Denies sore throat - Breasts Breasts: bilateral: as per HPI - Cardiovascular Cardiovascular: Denies chest pain, Denies shortness of breath - Respiratory Respiratory: Denies cough - Gastrointestinal Gastrointestinal: Denies abdominal pain, Denies diarrhea, Denies nausea, Denies vomiting - Genitourinary (Female) Genitourinary: Denies dysuria, Denies hematuria - Menstruation Menstruation: Reports as per HPI - Musculoskeletal Musculoskeletal: Denies myalgias - Integumentary Integumentary: Denies pruritus, Denies rash - Neurological Neurological: Denies numbness, Denies weakness - Psychiatric Psychiatric: Denies anxiety, Denies depression - Endocrine Comment: thyoid disease Endocrine: Reports weight change, Denies fatigue - Hematologic/Lymphatic Comment: none - Allergic/Immunologic Allergic/Immunologic: Reports as per HPI Past Medical History Past Medical History: Hypertension, Liver Disease, Thyroid Disorder History of Any Multi-Drug Resistant Organisms: None Reported Additional Past Surgical History / Comment(s): ganglion cyst left wrist removed Past Anesthesia/Blood Transfusion Reactions: No Reported Reaction Past Psychological History: Anxiety Smoking Status: Never smoker Past Alcohol Use History: None Reported Additional Drug Use History / Comment(s): CBD edible - Past Family History Father Family Medical History: Liver Disease Additional Family Medical History / Comment(s): fatty liver disease Medications and Allergies Home Medications Medication Instructions Recorded Confirmed Type Fexofenadine HCl [Yolie Allergy] 180 mg PO DAILY 11/06/22 01/02/23 History Fish Oil/Dha/Epa [Fish Oil 1,200 1 each PO DAILY 11/06/22 01/02/23 History mg Fish Oil] L.acidoph,Paracasei, B.lactis 1 each PO DAILY 11/06/22 01/02/23 History [Probiotic] Milk Thistle 400 mg PO DAILY 11/06/22 01/02/23 History Multivit with Calcium,Iron,Min 1 each PO DAILY 11/06/22 01/02/23 History [Women's Multivitamin] amLODIPine 10 mg PO DAILY 11/06/22 01/02/23 History methazolAMIDE [Methazolamide] 50 mg PO DAILY 11/06/22 01/02/23 History Kariva 1 tab PO DAILY 01/02/23 01/02/23 History Multivitamin [Multivitamins Adult 1 each PO DAILY 01/02/23 01/02/23 History Gummies] Allergies Allergy/AdvReac Type Severity Reaction Status Date / Time Penicillins Allergy Rash/Hives Verified 01/02/23 15:14 Objective - Vital Signs Vital signs: Intake & Output 07/17/23 07/18/23 07/18/23 18:59 06:59 18:59 Weight 86.183 kg Assessment and Plan Assessment: Impression: Bilateral nodules in the breast, Positive family history of breast cancer Fibrocystic breast changes Macromastia The patient had a bilateral mammogram performed on [id number] BIRAD 3, bilateral ultrasound performed on 07-14-2023 3 lesions noted in the breast, 1 lesion noted in the left breast Right breast: 10:00, 12:00, 1:00 Left breast, 2:00 Plan: The patient would like to have reduction mammoplasty performed therefore the lesions of concern in the breast should be sampled to rule out anything of concern Appointment with plastic surgery to consider breast reduction CC: Dr. Barriga
[2023-07-18 11:13] VITALS: BP 136/89; PULSE 101; RESP 17; TEMP 97.9
== END ==
LOC: WWCWWP 10:27
PROVIDERS: ATTEND Surgery
DX: Z12.31 Encounter for screening mammogram for malignant neoplasm of breast (principal); R92.8 Other abnormal and inconclusive findings on diagnostic imaging of breast; N60.11 Diffuse cystic mastopathy of right breast; N60.12 Diffuse cystic mastopathy of left breast; N60.02 Solitary cyst of left breast; N62 Hypertrophy of breast; L98.8 Other specified disorders of the skin and subcutaneous tissue; Z80.3 Family history of malignant neoplasm of breast; Z88.0 Allergy status to penicillin

== ENCOUNTER → 2023-07-30 | Outpatient (CLI) | payer OTHER ==
[2023-07-30 15:41] LABS: ALT 142 U/L (8-44); AST 100 U/L (13-35); Albumin 4.4 g/dL (3.8-4.9); Albumin/Globulin Ratio 1.42 Ratio (1.60-3.17); Alkaline Phosphatase 89 U/L (41-126); BUN/Creat Ratio 17.57 Ratio (12.00-20.00); Blood Urea Nitrogen 12.3 mg/dL (9.0-27.0); Calcium 10.1 mg/dL (8.7-10.3); Carbon Dioxide 21.8 mmol/L (21.6-31.8); Chloride 104 mmol/L (96-109); Globulin 3.1 g/dL (1.6-3.3); Glucose 113 mg/dL (70-110); Potassium 4.3 mmol/L (3.5-5.5); Sodium 140 mmol/L (135-145); Total Bilirubin 0.2 mg/dL (0.3-1.2); Total Protein 7.5 g/dL (6.2-8.2)
[2023-07-30 16:17] LABS: HCT 44.2 % (37.2-46.3); MCH 30.9 pg (27.0-32.0); MCHC 33.9 g/dL (32.0-37.0); MCV 90.9 FL (80.0-97.0); Mean Platelet Volume 10.9 FL (9.5-12.2); NRBC Per 100 WBC 0 X 10*3/uL (0.00-0.01); Platelet Count 293 X 10*3/uL (140-440); RBC 4.86 X 10*6/uL (4.10-5.20); RDW 12.3 % (11.5-14.5); WBC 7.04 X 10*3/uL (4.50-10.00)
== END | disposition home or self-care (01) ==
LOC: LABWHC1 08:47
PROVIDERS: ATTEND Internal Medicine
DX: E05.90 Thyrotoxicosis, unspecified without thyrotoxic crisis or storm (principal)
CPT/HCPCS: 36415; 80053; 84443; 84481; 85027

== ENCOUNTER → 2023-08-15 | Outpatient (CLI) | payer OTHER ==
--- NOTE | 2023-08-15 11:35 | MM ---
Reason for Exam: Additional evaluation requested from prior study. Last screening mammogram was performed 12 month(s) ago. Patient History: Menarche at age 13. Patient has no children. Premenopausal. Maternal grandmother had breast cancer at or over age 50. Risk Values: Daksha 5 year model risk: 0.5%. NCI Lifetime model risk: 11.2%. Prior Study Comparison: 05/17/2021 Bilateral Diagnostic Mammogram, [facility]. 08/13/2022 Bilateral MG 3D diag mammo w/cad SHY, [facility]. Tissue Density: The breasts are heterogeneously dense, which may obscure small masses. Findings: Analyzed By CAD. The pattern is symmetrical. Focal asymmetries are within the right breast are stable over the interval. There is a rounded circumscribed density within the left breast appears to be stable chronic nodularity. There is a focal asymmetry within the left breast unchanged comparison No suspicious groups of microcalcifications, spiculated or lobular masses, architectural distortion or other secondary signs of malignancy are mammographically apparent. Overall Assessment: Benign, BI-RAD 2 Management: Surgical Consultation of both breasts. A negative mammogram report should not preclude additional follow up of suspicious palpable abnormalities. Patient should continue monthly self breast exam. A clinical breast exam by your physician is recommended on an annual basis and results should be correlated with mammographic findings. Note on Daksha scores and lifetime risk: 1. A Daksha score greater than 3% is considered moderate risk. If this is the case, consider specialist referral to assess eligibility for a risk reducing agent. 2. If overall lifetime risk for the development of breast cancer is 20% or higher, the patient may qualify for future screening with alternating mammogram and breast MRI. Electronically signed and approved by: Suraj Brandt D.O. Radiologis
== END | disposition home or self-care (01) ==
LOC: RADMAMWWP 10:36
PROVIDERS: ATTEND Surgery
DX: R92.333 Mammographic heterogeneous density, bilateral breasts (principal); Z80.3 Family history of malignant neoplasm of breast
CPT/HCPCS: 77062; 77066

== ENCOUNTER → 2023-09-03 | Day surgery (SDC) | payer OTHER ==
[2023-09-03 10:26] LABS: Basophils # (A) 0.05 X 10*3/uL (0.00-0.10); Basophils % (A) 0.7 %; Eosinophils # (A) 0.32 X 10*3/uL (0.04-0.35); Eosinophils % (A) 4.6 %; HCT 44.9 % (37.2-46.3); HGB 15.2 g/dL (12.0-15.0); Lymphocytes # (A) 3.26 X 10*3/uL (0.90-5.00); MCHC 33.9 g/dL (32.0-37.0); MCV 91.6 FL (80.0-97.0); Mean Platelet Volume 10.6 FL (9.5-12.2); Monocytes # (A) 0.54 X 10*3/uL (0.20-1.00); Monocytes % (A) 7.8 %; NRBC Per 100 WBC 0 X 10*3/uL (0.00-0.01); Neutrophils # (A) 2.75 X 10*3/uL (1.80-7.70); Neutrophils % (A) 39.8 %; Platelet Count 322 X 10*3/uL (140-440); WBC 6.93 X 10*3/uL (4.50-10.00)
[2023-09-03 18:35] LABS: ALT 156 U/L (8-44); AST 119 U/L (13-35); Albumin 4.6 g/dL (3.8-4.9); Albumin/Globulin Ratio 1.44 Ratio (1.60-3.17); Alkaline Phosphatase 78 U/L (41-126); Blood Urea Nitrogen 13.6 mg/dL (9.0-27.0); Calcium 9.6 mg/dL (8.7-10.3); Carbon Dioxide 23.1 mmol/L (21.6-31.8); Chloride 103 mmol/L (96-109); Globulin 3.2 g/dL (1.6-3.3); Glucose 107 mg/dL (70-110); Potassium 4.4 mmol/L (3.5-5.5); Sodium 140 mmol/L (135-145); Total Bilirubin 0.5 mg/dL (0.3-1.2); Total Protein 7.8 g/dL (6.2-8.2)
--- NOTE | 2023-09-12 11:17 | MM ---
Reason for Exam: Post Procedure Mammogram. Last screening mammogram was performed less than 1 month ago. Patient History: Menarche at age 13. Patient has no children. Premenopausal. Maternal grandmother had breast cancer at or over age 50. Last menstrual period: 08/05/2023 Risk Values: Daksha 5 year model risk: 0.5%. NCI Lifetime model risk: 11.2%. Prior Study Comparison: 05/17/2021 Bilateral Diagnostic Mammogram, [facility]. 08/13/2022 Bilateral MG 3D diag mammo w/cad SHY, [facility]. 07/14/2023 Bilateral US breast limited BILAT, [facility]. 08/15/2023 Bilateral MG 3D diag mammo w/cad SHY, [facility]. Tissue Density: Right: The breasts are heterogeneously dense, which may obscure small masses. Pathology Description: Location: 7 o'clock. Marker Left Behind. Needle Type: Celero Cores: 4 Gauge: 12 Pathology Description: Location: 10 o'clock. Marker Left Behind. Needle Type: Celero Cores: 3 Gauge: 12 Pathology Description: Location: 1 o'clock. Marker Left Behind. Needle Type: Celero Cores: 4 Gauge: 12 The procedure of ultrasound guided core biopsy was explained to the patient. Benefits, alternatives, and risks were discussed. An informed consent was then obtained. The patient was placed in supine positioning for imaging and for the procedure. The overlying skin was prepped and draped in usual sterile fashion. Lidocaine buffered with bicarbonate was used as anesthetic into the skin and subcutaneous tissue up to area of concern in the right 7:00, right 1:00 and right 10:00 breast. A madeleine was made with surgical scalpel. Under ultrasound guidance, a 12-gauge vacuum assisted biopsy gun device was used to obtain 3 core samples tendon at the 10:00 position and 4 core samples obtained each at the 7 and 1:00 positions. Following this, 3 separate biopsy clips were left in the lesions. The patient tolerated the procedure well without any immediate complication. The patient was kept in the radiology department for short stay after the procedure and then discharged home in stable condition. Postprocedure mammogram: The patient was transferred to mammography for physician ordered post procedure mammogram for clip placement verification. Impression: Successful, uncomplicated ultrasound guided core biopsy of area of concern in the right breast, full pathology results to follow. Pathology Results: Result: Benign, Fibroadenoma. Pathology and radiology were reviewed. Findings are concordant. A. RIGHT BREAST, ONE O'CLOCK, ULTRASOUND GUIDED CORE BIOPSY: Benign fibroadenoma with focal myxoid change. B. RIGHT BREAST, TEN O'CLOCK, ULTRASOUND GUIDED CORE BIOPSY: Benign fibroadenoma. C. RIGHT BREAST, SEVEN O'CLOCK, ULTRASOUND GUIDED CORE BIOPSY: Benign fibroadenoma. Overall Assessment: Benign Assessment: MG diagnostic mammo RT wo CAD - Right: Benign, BI-RAD 2. Management: Diagnostic Mammogram of the right breast in 6 months. Electronically signed and approved by: Mode Lyons M.D. Radiologis
== END ==
LOC: RADUSWWP 06:52
PROVIDERS: ATTEND Surgery
DX: D24.1 Benign neoplasm of right breast (principal); R92.8 Other abnormal and inconclusive findings on diagnostic imaging of breast; Z80.3 Family history of malignant neoplasm of breast
CPT/HCPCS: 88305; 80053; 85025; 77065; 19083; 19084; A4648

== ENCOUNTER → 2023-09-03 | Outpatient (CLI) | payer OTHER | END | disposition home or self-care (01) | LOC: LABWHC1 07:01 | PROVIDERS: ATTEND Nurse Practitioner Family | DX: R74.8 Abnormal levels of other serum enzymes (principal) ==

== ENCOUNTER → 2023-09-10 | Day surgery (SDC) | payer OTHER ==
--- NOTE | 2023-09-12 11:22 | MM ---
Reason for Exam: Post Procedure Mammogram. Last screening mammogram was performed less than 1 month ago. Patient History: Menarche at age 13. Patient has no children. Premenopausal. 09/03/2023, US biopsy breast add'l VAD RT on the Right side. 09/03/2023, US biopsy breast add'l VAD RT on the Right side. 09/03/2023, Benign US biopsy breast VAD RT on the right side. Maternal grandmother had breast cancer at or over age 50. Risk Values: Daksha 5 year model risk: 1.3%. NCI Lifetime model risk: 17.9%. Prior Study Comparison: 05/17/2021 Bilateral Diagnostic Mammogram, [facility]. 08/13/2022 Bilateral MG 3D diag mammo w/cad SHY, [facility]. 08/15/2023 Bilateral MG 3D diag mammo w/cad SHY, [facility]. Tissue Density: Left: The breasts are heterogeneously dense, which may obscure small masses. Pathology Description: Location: 2 o'clock. Marker Left Behind. Needle Type: Celero Cores: 3 The procedure of ultrasound guided core biopsy was explained to the patient. Benefits, alternatives, and risks were discussed. An informed consent was then obtained. The patient was placed in supine positioning for imaging and for the procedure. The overlying skin was prepped and draped in usual sterile fashion. Lidocaine buffered with bicarbonate was used as anesthetic into the skin and subcutaneous tissue up to area of concern in the left 2:00 breast. Under ultrasound guidance, a 12-gauge vacuum assisted biopsy gun device was used to obtain 3 core samples. Following this, a biopsy clip was left in lesion. The patient tolerated the procedure well without any immediate complication. The patient was kept in the radiology department for short stay after the procedure and then discharged home in stable condition. Postprocedure mammogram: The patient was transferred to mammography for physician ordered post procedure mammogram for clip placement verification. Impression: Successful, uncomplicated ultrasound guided core biopsy of area of concern in the left 2:00 breast, full pathology results to follow. Pathology Results: Result: Benign, Fibroadenoma. Pathology and radiology were reviewed. Findings are concordant. LEFT BREAST, TWO O'CLOCK, ULTRASOUND GUIDED NEEDLE CORE BIOPSY: Fibroadenoma. Overall Assessment: Benign Assessment: MG diagnostic mammo LT wo CAD. - Left: Benign, BI-RAD 2. Management: Diagnostic Mammogram of the left breast in 6 months. Electronically signed and approved by: Mode Lyons M.D. Radiologis
== END ==
LOC: RADUSWWP 06:37
PROVIDERS: ATTEND Surgery
DX: D24.2 Benign neoplasm of left breast (principal); R92.8 Other abnormal and inconclusive findings on diagnostic imaging of breast; Z80.3 Family history of malignant neoplasm of breast
CPT/HCPCS: 88305; 77065; 19083; A4648

== ENCOUNTER → 2023-09-19 | Outpatient (CLI) | payer OTHER ==
[2023-09-19 12:11] VITALS: BP 145/90; PULSE 71; RESP 16; TEMP 98.6
--- NOTE | 2023-09-19 12:39 | P.PN ---
Subjective Progress Note Date: 09/19/23 Principal diagnosis: Symptomatic macromastia with 4 fibroadenomas 09-19-23 Chief Complaint: bilateral breast masses on ultrasound Vandana is a 38 year old white female seen in consultation for Dr. Barriga regarding bilateral breast masses on ultrasound. She had a bilateral mammogram and ultrasound on 08-13-22 showing these lesions. The patients paternal grandmother (in her 50's) had breast cancer and has had mammograms done early. The patient was being followed very closely in [place] and we do not have those mammographic films. The patient does not feel any new lumps masses or nodules of concern in either breast. She is not complaining of any nipple discharge or skin changes. She has not had any recent trauma or infection of the breast. Bilateral breast ultrasound was done on 05-15-2023 in the right breast at 10, 12, and 1 she was noted to have lesions for which biopsy were recommended biopsies were done on 09-03-2023 and were all positive for fibroadenomas the patient additionally had a left breast ultrasound which showed a lesion at 2:00 and a core biopsy was done of this in 09-10-2023 which showed a fibroadenoma She tolerated the biopsies without difficulty. She did develop ecchymosis particularly on the right side which has not completely resolved. Caffeine: 1 pop/week, tea daily nicotine: none chocolate: twice weekly BCP: on them since Family History: paternal grandmother: breast cancer in her 50's, ? bone and blood cancer in her 90's father: prostate cancer paternal grandfather: prostate cancer mother: cervical cancer Hormonal history: Menarche:13 G0 periods regular, on BCP: family history of ovarian cyst LMP: last week Surgical history: Left wrist ganglion cyst twice Medical History: thyroid disorder GRAVES disease fatty liver/ nonalcoholic HTN Social History: Nicotine: Negative Alcohol: One drink a month Drugs:none - Constitutional Constitutional: Denies chills, Denies fever - EENT Eyes: denies blurred vision, denies pain Ears: deny: decreased hearing, tinnitus Ears, nose, mouth and throat: Denies headache, Denies sore throat - Breasts Breasts: bilateral: as per HPI - Cardiovascular Cardiovascular: Denies chest pain, Denies shortness of breath - Respiratory Respiratory: Denies cough - Gastrointestinal Gastrointestinal: Denies abdominal pain, Denies diarrhea, Denies nausea, Denies vomiting - Genitourinary (Female) Genitourinary: Denies dysuria, Denies hematuria - Menstruation Menstruation: Reports as per HPI - Musculoskeletal Musculoskeletal: Denies myalgias - Integumentary Integumentary: Denies pruritus, Denies rash - Neurological Neurological: Denies numbness, Denies weakness - Psychiatric Psychiatric: Denies anxiety, Denies depression - Endocrine Comment: thyoid disease Endocrine: Reports weight change, Denies fatigue - Hematologic/Lymphatic Comment: none - Allergic/Immunologic Allergic/Immunologic: Reports as per HPI Past Medical History Past Medical History: Hypertension, Liver Disease, Thyroid Disorder History of Any Multi-Drug Resistant Organisms: None Reported Additional Past Surgical History / Comment(s): ganglion cyst left wrist removed Past Anesthesia/Blood Transfusion Reactions: No Reported Reaction Past Psychological History: Anxiety Smoking Status: Never smoker Past Alcohol Use History: None Reported Additional Drug Use History / Comment(s): CBD edible - Past Family History Father Family Medical History: Liver Disease Additional Family Medical History / Comment(s): fatty liver disease Medications and Allergies Home Medications Medication Instructions Recorded Confirmed Type Fexofenadine HCl [Yolie Allergy] 180 mg PO DAILY 11/06/22 01/02/23 History Fish Oil/Dha/Epa [Fish Oil 1,200 1 each PO DAILY 11/06/22 01/02/23 History mg Fish Oil] L.acidoph,Paracasei, B.lactis 1 each PO DAILY 11/06/22 01/02/23 History [Probiotic] Milk Thistle 400 mg PO DAILY 11/06/22 01/02/23 History Multivit with Calcium,Iron,Min 1 each PO DAILY 11/06/22 01/02/23 History [Women's Multivitamin] amLODIPine 10 mg PO DAILY 11/06/22 01/02/23 History methazolAMIDE [Methazolamide] 50 mg PO DAILY 11/06/22 01/02/23 History Kariva 1 tab PO DAILY 01/02/23 01/02/23 History Multivitamin [Multivitamins Adult 1 each PO DAILY 01/02/23 01/02/23 History Gummies] Allergies Allergy/AdvReac Type Severity Reaction Status Date / Time Penicillins Allergy Rash/Hives Verified 01/02/23 15:14 Objective - Vital Signs Vital signs: Vital Signs Temp 98.6 F 09/19/23 12:08 Pulse 71 09/19/23 12:08 Resp 16 09/19/23 12:08 BP 145/90 09/19/23 12:08 Pulse Ox 97 09/19/23 12:08 FiO2 Intake & Output 09/18/23 09/19/23 09/19/23 18:59 06:59 18:59 Weight 90.718 kg - Constitutional General appearance: Present: cooperative - EENT Eyes: Present: EOMI ENT: Present: hearing grossly normal - Neck Neck: Present: normal ROM - Respiratory Respiratory: bilateral: CTA - Cardiovascular Heart sounds: normal: S1, S2 - Gastrointestinal General gastrointestinal: Present: soft - Integumentary Integumentary: Present: normal turgor - Musculoskeletal Musculoskeletal: Present: gait normal - Psychiatric Psychiatric: Present: A&O x's 3, appropriate affect, intact judgment & insight - Additional findings Additional findings: Breast Exam: BRA: 34H Inspection: Bilateral grade 3 ptosis Palpation: Right breast: Multi-positional exam fibrocystic changes, no discrete dominant masses or nodules of concern Right axilla: No adenopathy of concern Left breast: Multiple positional exam fibrocystic changes no dominant masses or nodules of concern Left axilla: No adenopathy of concern Assessment and Plan Assessment: Impression: Bilateral nodules in the breast/biopsy bilateral fibroadenomas Positive family history of breast cancer Fibrocystic breast changes Macromastia Plan: Bilateral breast ultrasound in 6 months with physician exam at that time follow stability of fibroadenomas Follow-up after ultrasound If these are stable in size would consider bilateral reduction mammoplasty, if these have increased in size were of concern would consider resection at the time of reduction mammoplasty CC: Dr. Barriga
== END ==
LOC: WWCWWP 10:52
PROVIDERS: ATTEND Surgery
DX: N62 Hypertrophy of breast (principal); D24.2 Benign neoplasm of left breast; N60.11 Diffuse cystic mastopathy of right breast; N60.12 Diffuse cystic mastopathy of left breast; Z80.3 Family history of malignant neoplasm of breast; Z88.0 Allergy status to penicillin

== ENCOUNTER → 2023-11-20 | Outpatient (CLI) | payer OTHER ==
[2023-11-20 17:04] LABS: Basophils # (A) 0.06 X 10*3/uL (0.00-0.10); Basophils % (A) 0.8 %; Eosinophils # (A) 0.23 X 10*3/uL (0.04-0.35); Eosinophils % (A) 2.9 %; HCT 42.2 % (37.2-46.3); HGB 14.5 g/dL (12.0-15.0); Lymphocytes # (A) 3.31 X 10*3/uL (0.90-5.00); MCH 31.4 pg (27.0-32.0); MCHC 34.4 g/dL (32.0-37.0); MCV 91.3 FL (80.0-97.0); Mean Platelet Volume 10.8 FL (9.5-12.2); Monocytes # (A) 0.59 X 10*3/uL (0.20-1.00); Monocytes % (A) 7.5 %; NRBC Per 100 WBC 0 X 10*3/uL (0.00-0.01); Neutrophils # (A) 3.68 X 10*3/uL (1.80-7.70); Neutrophils % (A) 46.5 %; Platelet Count 315 X 10*3/uL (140-440); RBC 4.62 X 10*6/uL (4.10-5.20); RDW 12.2 % (11.5-14.5); WBC 7.89 X 10*3/uL (4.50-10.00)
[2023-11-20 18:10] LABS: ALT 96 U/L (8-44); AST 71 U/L (13-35); Albumin 4.4 g/dL (3.8-4.9); Albumin/Globulin Ratio 1.38 Ratio (1.60-3.17); Alkaline Phosphatase 78 U/L (41-126); BUN/Creat Ratio 16.62 Ratio (12.00-20.00); Blood Urea Nitrogen 13.3 mg/dL (9.0-27.0); Calcium 9.5 mg/dL (8.7-10.3); Carbon Dioxide 22.3 mmol/L (21.6-31.8); Chloride 101 mmol/L (96-109); Globulin 3.2 g/dL (1.6-3.3); Glucose 105 mg/dL (70-110); Potassium 4.1 mmol/L (3.5-5.5); Sodium 137 mmol/L (135-145); T4, Free (Free Thyroxine) 1.04 ng/dL (0.80-1.80); Total Bilirubin 0.4 mg/dL (0.3-1.2); Total Protein 7.6 g/dL (6.2-8.2)
== END | disposition home or self-care (01) ==
LOC: LABWHC1 08:41
PROVIDERS: ATTEND Nurse Practitioner Family
DX: R74.8 Abnormal levels of other serum enzymes
CPT/HCPCS: 36415; 80053; 84439; 84443; 84481; 85025

== ENCOUNTER → 2024-03-22 | Outpatient (CLI) | payer OTHER ==
--- NOTE | 2024-03-22 11:08 | USB ---
Reason for Exam: Follow-up at short interval from prior study. Patient History: Menarche at age 13. Patient has no children. Premenopausal. 09/10/2023, Benign US biopsy breast VAD LT on the left side. 09/03/2023, US biopsy breast add'l VAD RT on the Right side. 09/03/2023, US biopsy breast add'l VAD RT on the Right side. 09/03/2023, Benign US biopsy breast VAD RT on the right side. Maternal grandmother had breast cancer at or over age 50. Risk Values: Daksha 5 year model risk: 1.3%. NCI Lifetime model risk: 17.9%. Technique: Method: Whole Breast Handheld. Prior Study Comparison: 08/15/2023 Bilateral MG 3D diag mammo w/cad SHY, [facility]. 09/03/2023 Right MG diagnostic mammo RT wo CAD, [facility]. 09/10/2023 Left MG diagnostic mammo LT wo CAD., [facility]. Findings: The whole breast of both breasts, the axilla of both breasts and the retroareolar of both breasts were scanned. At the 7:00 position right breast 10 cm from nipple there is a small 0.2 x 0.3 x 0.2 cm hypoechoic area. This may be complex cyst with septation. This area was present previously. This area appears less suspicious on the current examination. However 6 month follow-up is recommended on the right. No suspicious cystic or solid areas are evident within the left breast. Overall Assessment: Probably benign, BI-RAD 3 Management: Diagnostic Breast Ultrasound of the right breast in 6 months. Diagnostic Mammogram of both breasts in 6 months. A clinical breast exam by your physician is recommended on an annual basis and results should be correlated with mammographic findings. This exam should not preclude additional follow-up of suspicious palpable abnormalities. Results were given to the patient verbally at the time of exam. [facility], , 03/22/2024 10:42 AM. Electronically signed and approved by: Suraj Brandt D.O. Radiologis
== END | disposition home or self-care (01) ==
LOC: RADUSWWP 09:46
PROVIDERS: ATTEND Surgery
DX: N60.01 Solitary cyst of right breast (principal); Z80.3 Family history of malignant neoplasm of breast

== ENCOUNTER → 2024-04-01 | Outpatient (CLI) | payer OTHER ==
[2024-04-01 11:45] LABS: Basophils # (A) 0.1 k/uL (0-0.2); Basophils % (A) 1 %; Eosinophils # (A) 0.2 k/uL (0-0.7); Eosinophils % (A) 3 %; HCT 45.8 % (34.0-46.0); HGB 15.1 gm/dL (11.4-16.0); Lymphocytes # (A) 2.6 k/uL (1.0-4.8); Lymphocytes % (A) 30 %; MCH 30.8 pg (25.0-35.0); MCV 93.3 fL (80.0-100.0); Mean Platelet Volume 7.3; Monocytes # (A) 0.5 k/uL (0-1.0); Monocytes % (A) 6 %; Neutrophils # (A) 4.9 k/uL (1.3-7.7); Neutrophils % (A) 58 %; Platelet Count 261 k/uL (150-450); RBC 4.91 m/uL (3.80-5.40); RDW 11.7 % (11.5-15.5); WBC 8.5 k/uL (3.8-10.6)
[2024-04-01 15:40] LABS: ALT 76 U/L (8-44); AST 56 U/L (13-35); Albumin 4.4 g/dL (3.8-4.9); Albumin/Globulin Ratio 1.42 Ratio (1.60-3.17); Alkaline Phosphatase 76 U/L (41-126); BUN/Creat Ratio 13.62 Ratio (12.00-20.00); Blood Urea Nitrogen 10.9 mg/dL (9.0-27.0); Calcium 9.4 mg/dL (8.7-10.3); Carbon Dioxide 25.5 mmol/L (21.6-31.8); Chloride 100 mmol/L (96-109); Chol/HDL Ratio 3.74 Ratio; Globulin 3.1 g/dL (1.6-3.3); Glucose 100 mg/dL (70-110); LDL Cholesterol,Calculated 157.7 mg/dL (0.0-131.0); Potassium 4.1 mmol/L (3.5-5.5); Sodium 137 mmol/L (135-145); Total Bilirubin 0.3 mg/dL (0.3-1.2); Total Protein 7.5 g/dL (6.2-8.2)
== END | disposition home or self-care (01) ==
LOC: LABWHC1 11:13
PROVIDERS: ATTEND Internal Medicine Gastroenterology
DX: I10 Essential (primary) hypertension (principal); E78.2 Mixed hyperlipidemia; E05.90 Thyrotoxicosis, unspecified without thyrotoxic crisis or storm; R74.8 Abnormal levels of other serum enzymes; R79.89 Other specified abnormal findings of blood chemistry
CPT/HCPCS: 36415; 80053; 80061; 82306; 82607; 83036; 84443; 84481; 85025

== ENCOUNTER → 2024-04-01 | Outpatient (CLI) | payer OTHER ==
[2024-04-01 10:04] VITALS: BP 135/92; PULSE 104; RESP 18; TEMP 97.5
--- NOTE | 2024-04-01 10:22 | P.PN ---
Subjective Progress Note Date: 04/01/24 Principal diagnosis: fibroadenomas 04-01-24 Principal diagnosis: Symptomatic macromastia with 4 fibroadenomas 09-19-23 Chief Complaint: bilateral breast masses on ultrasound Vandana is a 38 year old white female seen in consultation for Dr. Barriga regarding bilateral breast masses on ultrasound. She had a bilateral mammogram and ultrasound on 08-13-22 showing these lesions. The patients paternal grandmother (in her 50's) had breast cancer and has had mammograms done early. The patient was being followed very closely in [place] and we do not have those mammographic films. The patient does not feel any new lumps masses or nodules of concern in either breast. She is not complaining of any nipple discharge or skin changes. She has not had any recent trauma or infection of the breast. Bilateral breast ultrasound was done on 05-15-2023 in the right breast at 10, 12, and 1 she was noted to have lesions for which biopsy were recommended biopsies were done on 09-03-2023 and were all positive for fibroadenomas the patient additionally had a left breast ultrasound which showed a lesion at 2:00 and a core biopsy was done of this in 09-10-2023 which showed a fibroadenoma She tolerated the biopsies without difficulty. She did develop ecchymosis particularly on the right side which has not completely resolved. Patient had a bilateral ultrasound of the breast on 03-22-24, no mention was made of the fibroadenomas although at the 7 o'clock position of the right breast there was a small 0.2 x 0.3 cm hypoechoic area. This was personally reviewed and discussed with radiology and recommended to have a repeat ultrasound. Caffeine: 1 pop/week, tea daily nicotine: none chocolate: twice weekly BCP: on them since 16 Family History: paternal grandmother: breast cancer in her 50's, ? bone and blood cancer in her 90's father: prostate cancer paternal grandfather: prostate cancer mother: cervical cancer Hormonal history: Menarche:13 G0 periods regular, on BCP: family history of ovarian cyst LMP: last week Surgical history: Left wrist ganglion cyst twice Medical History: thyroid disorder GRAVES disease fatty liver/ nonalcoholic HTN Social History: Nicotine: Negative Alcohol: One drink a month Drugs:none - Constitutional Constitutional: Denies chills, Denies fever - EENT Eyes: denies blurred vision, denies pain Ears: deny: decreased hearing, tinnitus Ears, nose, mouth and throat: Denies headache, Denies sore throat - Breasts Breasts: bilateral: as per HPI - Cardiovascular Cardiovascular: Denies chest pain, Denies shortness of breath - Respiratory Respiratory: Denies cough - Gastrointestinal Gastrointestinal: Denies abdominal pain, Denies diarrhea, Denies nausea, Denies vomiting - Genitourinary (Female) Genitourinary: Denies dysuria, Denies hematuria - Menstruation Menstruation: Reports as per HPI - Musculoskeletal Musculoskeletal: Denies myalgias - Integumentary Integumentary: Denies pruritus, Denies rash - Neurological Neurological: Denies numbness, Denies weakness - Psychiatric Psychiatric: Denies anxiety, Denies depression - Endocrine Comment: thyoid disease Endocrine: Reports weight change, Denies fatigue - Hematologic/Lymphatic Comment: none - Allergic/Immunologic Allergic/Immunologic: Reports as per HPI Past Medical History Past Medical History: Hypertension, Liver Disease, Thyroid Disorder History of Any Multi-Drug Resistant Organisms: None Reported Additional Past Surgical History / Comment(s): ganglion cyst left wrist removed Past Anesthesia/Blood Transfusion Reactions: No Reported Reaction Past Psychological History: Anxiety Smoking Status: Never smoker Past Alcohol Use History: None Reported Additional Drug Use History / Comment(s): CBD edible - Past Family History Father Family Medical History: Liver Disease Additional Family Medical History / Comment(s): fatty liver disease Medications and Allergies Home Medications Medication Instructions Recorded Confirmed Type Fexofenadine HCl [Yolie Allergy] 180 mg PO DAILY 11/06/22 01/02/23 History Fish Oil/Dha/Epa [Fish Oil 1,200 1 each PO DAILY 11/06/22 01/02/23 History mg Fish Oil] L.acidoph,Paracasei, B.lactis 1 each PO DAILY 11/06/22 01/02/23 History [Probiotic] Milk Thistle 400 mg PO DAILY 11/06/22 01/02/23 History Multivit with Calcium,Iron,Min 1 each PO DAILY 11/06/22 01/02/23 History [Women's Multivitamin] amLODIPine 10 mg PO DAILY 11/06/22 01/02/23 History methazolAMIDE [Methazolamide] 50 mg PO DAILY 11/06/22 01/02/23 History Kariva 1 tab PO DAILY 01/02/23 01/02/23 History Multivitamin [Multivitamins Adult 1 each PO DAILY 01/02/23 01/02/23 History Gummies] Allergies Allergy/AdvReac Type Severity Reaction Status Date / Time Penicillins Allergy Rash/Hives Verified 01/02/23 15:14 Objective - Vital Signs Vital signs: Vital Signs Temp 97.5 F L 04/01/24 10:00 Pulse 104 H 04/01/24 10:00 Resp 18 04/01/24 10:00 BP 135/92 04/01/24 10:00 Pulse Ox 98 04/01/24 10:00 FiO2 Intake & Output 03/31/24 04/01/24 04/01/24 18:59 06:59 18:59 Weight 90.718 kg - Constitutional General appearance: Present: cooperative - EENT Eyes: Present: EOMI ENT: Present: hearing grossly normal - Neck Neck: Present: normal ROM - Respiratory Respiratory: bilateral: CTA - Cardiovascular Rhythm: regular Heart sounds: normal: S1, S2 - Integumentary Integumentary: Present: normal turgor - Musculoskeletal Musculoskeletal: Present: gait normal - Psychiatric Psychiatric: Present: A&O x's 3, appropriate affect, intact judgment & insight - Additional findings Additional findings: Breast Exam: BRA: 34H Inspection: Bilateral grade 3 ptosis Palpation: Right breast: Multi-positional exam fibrocystic changes, no discrete dominant masses or nodules of concern Right axilla: No adenopathy of concern Left breast: Multiple positional exam fibrocystic changes no dominant masses or nodules of concern Left axilla: No adenopathy of concern Assessment and Plan Assessment: Impression: Bilateral nodules in the breast/biopsy bilateral fibroadenomas Positive family history of breast cancer Fibrocystic breast changes Macromastia Plan: Bilateral breast ultrasound in 6 months with physician exam at that time follow stability of fibroadenomas repeat right breast ultrasound now to look for fibroadenomas stability, left breast done bilateral mammogram in 2024 with appointment at that time If these are stable in size would consider bilateral reduction mammoplasty, if these have increased in size were of concern would consider resection at the time of reduction mammoplasty CC: Dr. Barriga
== END ==
LOC: WWCWWP 09:52
PROVIDERS: ATTEND Surgery
DX: N60.21 Fibroadenosis of right breast (principal); N60.22 Fibroadenosis of left breast; N60.11 Diffuse cystic mastopathy of right breast; N62 Hypertrophy of breast; N60.12 Diffuse cystic mastopathy of left breast; Z80.3 Family history of malignant neoplasm of breast; Z88.0 Allergy status to penicillin

== ENCOUNTER → 2024-04-01 | Outpatient (CLI) | payer OTHER ==
--- NOTE | 2024-04-01 11:09 | USB ---
Reason for Exam: Follow-up at short interval from prior study. Patient History: Menarche at age 13. Patient has no children. Premenopausal. 09/10/2023, Benign US biopsy breast VAD LT on the left side. 09/03/2023, US biopsy breast add'l VAD RT on the Right side. 09/03/2023, US biopsy breast add'l VAD RT on the Right side. 09/03/2023, Benign US biopsy breast VAD RT on the right side. Maternal grandmother had breast cancer at or over age 50. Risk Values: Daksha 5 year model risk: 1.3%. NCI Lifetime model risk: 17.9%. Technique: Method: Targeted. Prior Study Comparison: 08/15/2023 Bilateral MG 3D diag mammo w/cad [facility], [facility]. 09/03/2023 Right MG diagnostic mammo RT wo CAD, [facility]. 09/10/2023 Left MG diagnostic mammo LT wo CAD., [facility]. Findings: The upper section of the breast of the right breast and the lateral section of the breast of the right breast were scanned. Technique utilized:US breast limited RT Image; Ultrasound imaging of: All 4 quadrants, the retroareolar region and axilla. Right breast 10:00 12 cm from nipple clip located within the anechoic cyst with adjacent with adjacent fibroadenoma measuring up to 6 mm, previously up to 9 mm this is likely representing post biopsy change. Right breast 1:00 6 cm the nipple fibroadenoma measuring up to 12 mm with adjacent clip in cyst. Previously measuring up to 12 mm. Right breast for 7:00 fibroadenoma not identified. Overall Assessment: Benign, BI-RAD 2 Management: Screening Mammogram of both breasts in 1 year. No Bill/no charge A clinical breast exam by your physician is recommended on an annual basis and results should be correlated with mammographic findings. This exam should not preclude additional follow-up of suspicious palpable abnormalities. Results were given to the patient verbally at the time of exam. [facility], , 04/01/2024 11:05 AM. Electronically signed and approved by: Anupam Chung DO
== END | disposition home or self-care (01) ==
LOC: RADUSWWP 10:40
PROVIDERS: ATTEND Surgery
DX: N63.10 Unspecified lump in the right breast, unspecified quadrant (principal); Z80.3 Family history of malignant neoplasm of breast

== ENCOUNTER → 2024-05-22 | Outpatient (CLI) | payer OTHER ==
[2024-05-23 06:44] LABS: Basophils # (A) 0.07 X 10*3/uL (0.00-0.10); Basophils % (A) 0.9 %; Eosinophils # (A) 0.29 X 10*3/uL (0.04-0.35); Eosinophils % (A) 3.7 %; HCT 43.9 % (37.2-46.3); HGB 14.9 g/dL (12.0-15.0); Lymphocytes # (A) 3.18 X 10*3/uL (0.90-5.00); MCH 31.2 pg (27.0-32.0); MCHC 33.9 g/dL (32.0-37.0); Mean Platelet Volume 10.7 FL (9.5-12.2); Monocytes # (A) 0.46 X 10*3/uL (0.20-1.00); Monocytes % (A) 5.9 %; NRBC Per 100 WBC 0 X 10*3/uL (0.00-0.01); Neutrophils # (A) 3.74 X 10*3/uL (1.80-7.70); Neutrophils % (A) 48.2 %; Platelet Count 297 X 10*3/uL (140-440); RBC 4.77 X 10*6/uL (4.10-5.20); RDW 12.2 % (11.5-14.5); WBC 7.76 X 10*3/uL (4.50-10.00)
[2024-05-23 07:14] LABS: ALT 68 U/L (8-44); AST 57 U/L (13-35); Albumin 4.4 g/dL (3.8-4.9); Albumin/Globulin Ratio 1.42 Ratio (1.60-3.17); Alkaline Phosphatase 72 U/L (41-126); Blood Urea Nitrogen 10.4 mg/dL (9.0-27.0); Calcium 9.6 mg/dL (8.7-10.3); Carbon Dioxide 24.8 mmol/L (21.6-31.8); Chloride 102 mmol/L (96-109); Globulin 3.1 g/dL (1.6-3.3); Glucose 95 mg/dL (70-110); Potassium 4.8 mmol/L (3.5-5.5); Sodium 138 mmol/L (135-145); Total Bilirubin 0.4 mg/dL (0.3-1.2); Total Protein 7.5 g/dL (6.2-8.2)
== END | disposition home or self-care (01) ==
LOC: LABWHC1 10:19
PROVIDERS: ATTEND Internal Medicine Gastroenterology
DX: R74.8 Abnormal levels of other serum enzymes (principal)
CPT/HCPCS: 36415; 80053; 85025

== ENCOUNTER → 2024-09-18 | Outpatient (CLI) | payer OTHER ==
[2024-09-18 14:44] LABS: BUN/Creat Ratio 11.12 Ratio (12.00-20.00); Blood Urea Nitrogen 8.9 mg/dL (9.0-27.0); Glucose 105 mg/dL (70-110)
[2024-09-18 14:45] LABS: ALT 44 U/L (8-44); AST 41 U/L (13-35); Albumin 4.3 g/dL (3.8-4.9); Albumin/Globulin Ratio 1.39 Ratio (1.60-3.17); Alkaline Phosphatase 66 U/L (41-126); Calcium 9.4 mg/dL (8.7-10.3); Carbon Dioxide 23.4 mmol/L (21.6-31.8); Chloride 110 mmol/L (96-109); Globulin 3.1 g/dL (1.6-3.3); Potassium 4.5 mmol/L (3.5-5.5); Sodium 148 mmol/L (135-145); T4, Free (Free Thyroxine) 1.12 ng/dL (0.80-1.80); Total Bilirubin 0.4 mg/dL (0.3-1.2); Total Protein 7.4 g/dL (6.2-8.2)
== END | disposition home or self-care (01) ==
LOC: LABWHC1 08:05
PROVIDERS: ATTEND Internal Medicine
DX: E05.90 Thyrotoxicosis, unspecified without thyrotoxic crisis or storm (principal)
CPT/HCPCS: 36415; 80053; 84439; 84443; 84481